=== PATIENT | male | born 1965 | race Caucasian/White ===

== ENCOUNTER 2016-11-23 08:38 | Emergency (ER) | payer OTHER ==
[~2016-11-23] VITALS: Ht 177.8 cm; Wt 88.5 kg
[2016-11-23 09:47] LABS: CALCIUM 8.7 mg/dL (8.5-10.1); CREATININE 1.1 mg/dL (0.7-1.3); POTASSIUM 4.1 mmol/L (3.5-5.1)
[2016-11-23 10:50] LABS: HEMATOCRIT 42.2 % (42.0-52.0); HEMOGLOBIN 14.2 gm/dL (14.0-18.0); MCH 30.2 pg (26.0-34.0); MCHC 33.6 g/dL (28.0-37.0); MCV 89.7 fL (80.0-100.0); RBC 4.7 mil/uL (4.50-6.00); RDW 13.6 % (10.5-14.5); WBC 6.7 thou/uL (4.0-11.0)
[2016-11-23 11:00] LABS: PROTIME 10.5 Seconds (9.3-11.4)
[2016-11-23 11:46] VITALS: BP 138/96
== END 2016-11-23 11:47 | disposition short-term general hospital (02) ==
LOC: ER 08:38
PROVIDERS: Physician Assistant
DX: S62.607A Fracture of unspecified phalanx of left little finger, initial encounter for closed fracture (principal); S62.603A Fracture of unspecified phalanx of left middle finger, initial encounter for closed fracture; S36.429A Contusion of unspecified part of small intestine, initial encounter; S36.112A Contusion of liver, initial encounter; S36.029A Unspecified contusion of spleen, initial encounter; S20.219A Contusion of unspecified front wall of thorax, initial encounter; S09.90XA Unspecified injury of head, initial encounter; R58 Hemorrhage, not elsewhere classified; F10.99 Alcohol use, unspecified with unspecified alcohol-induced disorder; V29.88XA Motorcycle rider (driver) (passenger) injured in other specified transport accidents, initial encounter; Y93.55 Activity, bike riding; Y92.828 Other wilderness area as the place of occurrence of the external cause; Y99.8 Other external cause status

== ENCOUNTER 2021-02-05 11:49 | Inpatient (IN) | payer BC, OTHER ==
[~2021-02-05] VITALS: Ht 177.8 cm; Wt 88.9 kg
[2021-02-05 12:10] VITALS: BP 145/98
[2021-02-05 12:55] LABS: ABSOLUTE NEUTROPHILS 3.7 thou/uL (1.4-8.2); BASOPHILS 0.3 % (0.0-2.0); EOSINOPHILS 0.1 % (0.0-3.0); HEMATOCRIT 50.6 % (42.0-52.0); HEMOGLOBIN 16.8 gm/dL (14.0-18.0); LYMPHOCYTES 13.5 % (24.0-44.0); MCH 30.1 pg (26.0-34.0); MCHC 33.2 g/dL (28.0-37.0); MCV 90.5 fL (80.0-100.0); MONOCYTES 7.3 % (1.0-8.0); PLATELET COUNT 153 thou/uL (150-400); POLYS 78.8 % (36.0-66.0); RBC 5.59 mil/uL (4.50-6.00); RDW 13.5 % (10.5-14.5); WBC 4.6 thou/uL (4.0-11.0)
[2021-02-05 13:05] LABS: CALCIUM 9.2 mg/dL (8.5-10.1); CREATININE 1.3 mg/dL (0.7-1.3); POTASSIUM 4.4 mmol/L (3.5-5.1)
[2021-02-05 13:12] LABS: ALBUMIN 3.5 g/dL (3.4-5.0); TOTAL BILIRUBIN 0.4 mg/dL (0.2-1.0); TOTAL PROTEIN 7.6 g/dL (6.4-8.2)
[2021-02-05 14:11] VITALS: BP 140/88
[2021-02-05 14:36] VITALS: BP 140/105
[2021-02-05 15:00] VITALS: BP 139/99
--- NOTE | 2021-02-05 15:33 | EKG ---
[place] [address] [address] [facility] [place] [address] ELECTROCARDIOGRAM REPORT Name: KARSON PARRISH Room #: 353-P ADM IN M.R.#: [id number] Admission: 02/05/21 Attend Phys: Kimberly Fang Discharge: Date of : 63 Report #: [id number] [facility] ED Test Date: 2021-02-05 Test Time: 11:59:49 Pat Name: KARSON PARRISH Department: Room: 353 Gender: M Electrical Engineering Technician: JENIFER : 1965 Requested By: Dennis Dave Order Number: [id number] MD: Magdi Boles Measurements Intervals [place] Rate: 107 P: 37 LA: 132 QRS: 93 QRSD: 91 T: 30 QT: 331 QTc: 442 Interpretive Statements Sinus tachycardia Probable left atrial enlargement Consider right ventricular hypertrophy Baseline wander in lead(s) III No previous ECG available for comparison Electronically Signed On 02-05-2021 15:33:38 CDT by Magdi Boles [email or web address] <ELECTRONICALLY SIGNED> By: Magdi Boles MD, FACC 02/05/21 1533 [id number] Magdi Boles MD, FACC /EPI
[2021-02-05 19:40] VITALS: BP 118/81
[2021-02-06 03:50] VITALS: BP 120/84
--- NOTE | 2021-02-06 06:24 | NUR ---
afebrile this shift. hehas been very talkative tonight. he is resting at this early am time. complains of some headache pain tonight. medicated with acetaminphen, with effective control of pain
[2021-02-06 06:35] LABS: ALBUMIN 2.9 g/dL (3.4-5.0); CALCIUM 8.4 mg/dL (8.5-10.1); CREATININE 1.7 mg/dL (0.7-1.3); DIRECT BILIRUBIN 0.1 mg/dL (<0.1-0.2); PHOSPHORUS 3.4 mg/dL (2.5-4.9); POTASSIUM 5.1 mmol/L (3.5-5.1); TOTAL BILIRUBIN 0.3 mg/dL (0.2-1.0); TOTAL PROTEIN 6.7 g/dL (6.4-8.2)
[2021-02-06 08:21] VITALS: BP 121/85
--- NOTE | 2021-02-06 15:38 | NUR ---
INITIAL ASSESSMENT: SW reviewed chart and spoke with nursing and attending physician. Pt was admitted from home due to COVID pneumonitis. Pt has not received a COVID vaccination. Pt is afebrile and on room air. Pt is on IV lasix and Remdesivir. ID consulted. Discharge home is anticipated in 1-2 days. SW spoke with pt via phone. Introduced role of SW. Pt is alert/orientated x 4. Pt reports he lives at home. Prior to admission, pt was indpendent with ADLs. No use of DME. Pt is employed and has health insurance. Pt does not currently have a PCP. Pt is aware and agreeable with discharge timeframe. Plan is for pt to discharge home when medically stable. SW is following to assist as needed with discharge planning.
[2021-02-06 15:41] VITALS: BP 122/84
--- NOTE | 2021-02-06 17:45 | NUR ---
ASSUMED PATIENT CARE AT 0700. A/O X4. UP AD JOSE. ON 1L/NC. SLOWLY TOWARDS POC GOALS.
[2021-02-06 19:17] VITALS: BP 123/89
--- NOTE | 2021-02-06 22:46 | NUR ---
PT ALERT AND ORIENTED X4. VSS AFEBRILE. UNLABORED ON 2LNC. BS SOUND CLEAR BUT DIMINISHED. NO C/O PAIN. NO C/O SOA. PT RESTING QUIETLY. HAPPY TO BE GOING HOME TOMORROW.
[2021-02-07 02:54] VITALS: BP 108/70
--- NOTE | 2021-02-07 04:36 | NUR ---
PT PROGRESSING TOWARDS D/C GOASL. PT POSSIBLY GOING [facility] TODAY. VSS AFEBRILE. NO C/O PAIN. NO S/S DISTRESS.
[2021-02-07 06:36] LABS: ALBUMIN 2.9 g/dL (3.4-5.0); CALCIUM 8.6 mg/dL (8.5-10.1); CREATININE 1.1 mg/dL (0.7-1.3); POTASSIUM 4.5 mmol/L (3.5-5.1); TOTAL BILIRUBIN 0.3 mg/dL (0.2-1.0); TOTAL PROTEIN 6.6 g/dL (6.4-8.2)
[2021-02-07 06:42] LABS: DIRECT BILIRUBIN 0.1 mg/dL (<0.1-0.2); PHOSPHORUS 2.7 mg/dL (2.5-4.9)
[2021-02-07 07:19] VITALS: BP 117/81
[2021-02-07] MEDS ORDERED: DECADRON6 MG PO (09:25)
[2021-02-07] MEDS ORDERED: ZINC SULFATE50 MG PO (09:26)
[2021-02-07] MEDS ORDERED: LASIX 40 MG TAB40 MG PO (09:26)
[2021-02-07] MEDS ORDERED: PEPCID20 MG PO (09:26)
[2021-02-07] MEDS ORDERED: ACEROLA C500 MG PO (09:27)
--- NOTE | 2021-02-07 11:26 | HC ---
[facility] [place] [address] CONSULTATION Name: KARSON PARRISH Room #: 353-[facility] IN M.R.#: [id number] Admission: 02/05/21 Attend Phys: Kimberly Fang Discharge: Date of : 63 Report #: [id number] THIS REPORT FOR: cc: NO FAMILY PHYSICIAN or PCP NO FAMILY PHYSICIAN or PCP Laith Johnson MD ~ DATE OF SERVICE: 02/06/2021 INFECTIOUS DISEASE CONSULTATION ATTENDING PHYSICIAN: Dr. Fang. REASON FOR EVALUATION: COVID-19 infection, complicated by pneumonitis and respiratory failure. HISTORY OF PRESENT ILLNESS: Chart reviewed. The patient was examined. 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 He was tested and was confirmed to be COVID positive on 01/29/2021. He continued to struggle, although he more recently did have persistent fevers, progressive dyspnea, nausea with diarrhea. ____ prompted visit to the ER. Initial laboratory noted to have mildly elevated LFTs. He states he was taking a lot of Tylenol. Lactic acid was 1.0. Chest x-ray did show peripheral bilateral infiltrates. Procalcitonin 0.26. Creatinine up to 1.7. He was resuscitated, given fluids, initiated on therapy with remdesivir, generally feels better. He has a cough that is nonproductive. He is maintained on supplemental oxygen 1 liter per nasal cannula at this point. ALLERGIES: None known. CURRENT MEDICATIONS: Include furosemide, zinc, melatonin, famotidine, ascorbic acid, enoxaparin, dexamethasone, acetaminophen, nitroglycerin, remdesivir. PAST MEDICAL HISTORY: As noted above, otherwise unremarkable. SOCIAL HISTORY: Special occasion ethanol. Nonsmoker. No illicit drug use. FAMILY HISTORY: Noncontributory. REVIEW OF SYSTEMS: Otherwise, unremarkable. PHYSICAL EXAMINATION: GENERAL: He is alert, cooperative, appears to be reasonably well nourished. Mild to moderate distress. He is lucid. VITAL SIGNS: Temperature 98.7, pulse 92, respirations 16, blood pressure 121/85. [facility] [address] [place] [address] CONSULTATION Name: KARSON PARRISH Room #: 353-P [facility] IN M.R.#: [id number] Admission: 02/05/21 Attend Phys: Kimberly Fang Discharge: Date of : 63 Report #: [id number] SKIN: Warm, dry, no rashes. HEENT: Normocephalic. Extraocular muscles intact. Nasal cannula in place. NECK: Supple. LUNGS: Bilateral basilar coarse sounds. HEART: Regular, borderline tachycardia. I do not appreciate a murmur. ABDOMEN: Mildly distended, somewhat firm, nontender. EXTREMITIES: No cyanosis. GENITOURINARY AND RECTAL: Deferred. LABORATORY DATA: Electrolytes: Sodium 136, potassium 5.1, chloride 100, bicarbonate is 30, anion gap of 6, BUN and creatinine 28 and 1.7, glucose of 115, AST of 75, ALT of 67. Albumin of 2.9, total protein 6.7. Coronavirus testing was positive. Chest x-ray as described above. Initial CBC: White count of 4.6, H and H 16.8 and 50.6, platelets 153. ASSESSMENT AND PLAN: COVID-19 infection complicated by bilateral pneumonitis and respiratory failure. He is not severely ill, although he continues to be somewhat tenuous. We will continue approach as prescribed with corticosteroids, ____ therapy with remdesivir and vitamins. In addition to that, oxygen therapy as required. We will add incentive spirometry. In the event of clinical signs or symptoms worsening, we would consider adding additional treatments including Actemra. <ELECTRONICALLY SIGNED> By: Laith Johnson MD 02/07/21 1126 [id number] Laith Johnson MD /nt
--- NOTE | 2021-02-07 12:59 | NUR ---
DISCHARGE NOTE: SW reviewed chart and spoke with nursing and attending physician. Pt remains in Enhanced Isolation due to COVID. Pt is medically stable for discharge home today. SW spoke with pt via phone to discuss discharge plan. Pt states that he drove himself to the hospital and is planning to drive himself home. Pt's meds sent to his pharamcy. No SW needs identified at this time. SW is available to assist should needs arise.
[2021-02-07 13:10] VITALS: BP 117/81
[2021-02-07 15:28] VITALS: BP 120/79
== END 2021-02-07 16:39 | disposition home or self-care (01) | DRG 177 ==
LOC: ER 11:49 → EROBS 13:48 → 3W 13:48
PROVIDERS: Nurse Practitioner; ADMIT Hospitalist; ATTEND Hospitalist
PROC: XW033E5 Introduction of Remdesivir Anti-infective into Peripheral Vein, Percutaneous Approach, New Technology Group 5 (ICD-10-PCS; principal; 2021-02-05)
DX: U07.1 COVID-19 (principal); J12.82 Pneumonia due to coronavirus disease 2019; J96.91 Respiratory failure, unspecified with hypoxia; Z79.899 Other long term (current) drug therapy
CPT/HCPCS: 10080; 10879

== ENCOUNTER 2021-02-21 19:15 | Emergency (ER) | payer BC, OTHER ==
[~2021-02-21] VITALS: Ht 177.8 cm; Wt 90.7 kg
[~2021-02-21 19:15] MED LIST: ACEROLA C500 MG PO; DECADRON6 MG PO; LASIX 40 MG TAB40 MG PO; PEPCID20 MG PO; ZINC SULFATE50 MG PO
[2021-02-21 21:22] LABS: ABSOLUTE NEUTROPHILS 2.9 thou/uL (1.4-8.2); BASOPHILS 1.1 % (0.0-2.0); HEMATOCRIT 46.6 % (42.0-52.0); HEMOGLOBIN 15.5 gm/dL (14.0-18.0); LYMPHOCYTES 25.7 % (24.0-44.0); MCH 30.5 pg (26.0-34.0); MCHC 33.2 g/dL (28.0-37.0); MCV 91.7 fL (80.0-100.0); MONOCYTES 18.2 % (1.0-8.0); PLATELET COUNT 312 thou/uL (150-400); RBC 5.08 mil/uL (4.50-6.00); RDW 14.3 % (10.5-14.5); WBC 5.8 thou/uL (4.0-11.0)
[2021-02-21 21:48] LABS: CALCIUM 9.1 mg/dL (8.5-10.1); CREATININE 1.2 mg/dL (0.7-1.3); POTASSIUM 4.6 mmol/L (3.5-5.1)
[2021-02-21 21:58] LABS: ALBUMIN 3.4 g/dL (3.4-5.0); TOTAL BILIRUBIN 0.7 mg/dL (0.2-1.0); TOTAL PROTEIN 6.5 g/dL (6.4-8.2)
[2021-02-22 02:02] VITALS: BP 147/62
--- NOTE | 2021-02-22 07:22 | EKG ---
[facility] [place] [address] ELECTROCARDIOGRAM REPORT Name: KARSON PARRISH Room #: DEP ANDREW [place]#: [id number] Admission: 02/21/21 Attend Phys: Discharge: 02/22/21 Date of : 63 Report #: [id number] [facility] ED Test Date: 2021-02-21 Test Time: 21:26:35 Pat Name: KARSON PARRISH Department: Room: Gender: M Registered Respiratory Therapist: dima buchanan : 1965 Requested By: Taylor Choe Order Number: [id number] MD: Magdi Boles Measurements Intervals [place] Rate: 88 P: 30 HI: 159 QRS: -36 QRSD: 95 T: -10 QT: 359 QTc: 435 Interpretive Statements Sinus rhythm Abnormal R-wave progression, early transition Left ventricular hypertrophy Borderline T abnormalities, inferior leads Compared to ECG 02/05/2021 11:59:49 Left ventricular hypertrophy now present T-wave abnormality now present Sinus tachycardia no longer present Electronically Signed On 02-22-2021 7:22:00 CDT by Magdi Boles [email or web address] <ELECTRONICALLY SIGNED> By: Magdi Boles MD, [facility] 02/22/21721 25 25 Magdi Boles MD, [facility] /EPI
== END 2021-02-22 02:36 | disposition admitted as inpatient to this hospital (09) ==
LOC: ER 19:15
PROVIDERS: Nurse Practitioner Family
DX: R06.09 Other forms of dyspnea (principal); Z86.16 Personal history of COVID-19; Z79.891 Long term (current) use of opiate analgesic; Z79.899 Other long term (current) drug therapy